=== PATIENT | female | born 1950 | race Caucasian/White ===

== ENCOUNTER 2016-04-24 07:00 | Inpatient (IN) | payer OTHER, MEDICARE ==
[~2016-04-24] VITALS: Ht 160 cm; Wt 70.3 kg
[2016-04-25] MEDS ORDERED: NEXIUM40 M1 PO (10:09)
[2016-05-07] MEDS ORDERED: MAGNESIUM500 M2 PO (07:25)
[2016-05-07] MEDS ORDERED: VICODIN 5-3001 EACH PO (07:25)
[2016-05-07] MEDS ORDERED: TUMS200 MG PO (07:26)
--- NOTE | 2016-05-07 08:46 | Operative Report ---
Operative/Inv Procedure Report Surgery Date: 05/07/16 Name of Procedure: L2-5 laminectomy, medial L2-3, L3 4, L4 5 facetectomies Pre-Operative Diagnosis: L2-5 stenosis with claudication Post-Operative Diagnosis: same Estimated Blood Loss: 500cc Surgeon/Medical Office Representative: ESTUARDO CROCKETT,GURU Chu Anesthesia: general endotracheal tube IV Fluids: replaced with crystalloid 2.4L Implants: None Urine Output: 1500cc via celaya Drains: Medium HORACIO Specimens: None Complications: None Condition: stable Operative Indication: Pt 65yo women with intractable LE claudication nonresponsive to nonoperative treatment. Imaging identifies multilevel lumbar DDD with multilevel stenosis L2 -5 of moderately severe degree and varying degrees of mild spondylolisthesis without dynamic instability. Pt now presents for operative decompression. Operative/Procedure Note Note: Pt taken to OR and after pt identification and surgical time out, pt underwent smooth induction of GET, given 2g iv kefzol in preop prophylaxis, had celaya catheter steriley inseted, and then carefully turned to prone position on Emil table ensuring all pressure pts well padded. The low back sterily prepped and draped with povoiodine solution and midline incision marked L2-5 and infiltrated with local. Lateral portable lumbar xray localized the spinal levels and skin incision made with 10 blade knife. Dissection carried down through subcutaneous tissue with the Bovie. The underlying lumbar dorsal fascia was identified and incised. A subperiosteal dissection lumbar paravertebral muscles was performed bilaterally exposing spinous processes lamina and facet joints from L2 to L5. Facet joint capsules were intentionally left in place. A Lloyd 4 elevator was placed under the inferomedial aspect of the presumed L4 lamina and intraoperative x-ray was obtained and confirmed the correct levels. We exposed the pars interarticularis of L2-L3 and L4 bilaterally. With correct levels verified, we then proceeded to perform a laminectomy of L2, L3, L4, and the rostral half of L5 using a combination of the bone scalpel and Kerrison rongeurs. Medial facetectomies bilaterally at L2-3, L3 4, L4 5 were performed using the bone scalpel and Kerrisons and a decompression was taken laterally to the level of the medial pedicle at all 3 levels. Tightest stenosis was noted at L4 5 moderately severe stenosis at L3 4 and moderate L2-3. Flava was stripped and the dural sac was widely decompressed. Using a [place] elevator we were able to easily palpate out the neural foramen at all 3 levels bilaterally and thickened ligamentum flavum was removed from the lateral gutters with the Kerrison until an excellent decompression of the proximal roots and thecal sac was accomplished. The wound was copiously irrigated with antibiotic sterile saline irrigation. Small amount of venous epidural bleeding was easily controlled using Surgi-Trino and Hector of [place] patties. We monitored the wound. There was no evidence of a CSF leak. I with the decompression looking excellent, we then began wound closure. A medium Hemovac drain was placed into the wound and secured to the skin with a 2-0 nylon suture. 1 g of IV vancomycin powder was placed over the cut muscle and soft tissue surfaces. A 10 mL of long-acting local was injected into the paravertebral muscle for postoperative analgesia. Deep muscle was reapproximated with interrupted 0 Vicryl suture. Lumbodorsal fascia was reapproximated with interrupted 0 Vicryl suture. Subcutaneous tissue was closed in layers with interrupted 2-0 Vicryl suture and the skin was closed with edyta. The wound was cleaned and dried. Bacitracin and a sterile occlusive dressings were placed. She was returned to the supine position, awakened, extubated, and taken to PACU in stable condition. She was noted to moving all 4 extremities at the completion of the case. All sponge, needle, and instrument counts are correct the completion of procedure 3. Findings: Tight stenosis L4 5 greater than L3 4 greater than L2-3 secondary to hypertrophic facet and ligamentous changes Discharge Disposition: PACU
[2016-05-07 14:45] VITALS: BP 124/72
--- NOTE | 2016-05-07 14:51 | PN- Neurosurgical ---
Subjective Subjective: The patient was seen this afternoon. She was still sleepy but relatively comfortable complaining of incisional pain. She had no other complaints the current time and denied any numbness, weakness, or tingling in her extremities. Objective Vital Signs and I&Os Vital Signs Date Time Temp Pulse Resp B/P Pulse O2 O2 Flow FiO2 Ox Delivery Rate 05/07 1445 97.4 64 18 124/72 95 Nasal 2.0L Cannula I's and O's: 2400 ML's in of lactated Ringer's/250 ML's out of urine via Haskins catheter/100 ML's out of sanguinous drainage via HORACIO/EBL 500 Physical Exam: Gen.: Sleepy but easily arousable and in no obvious distress Skin: Warm and dry Cardiac: S1 and S2 regular Pulmonary: Bilateral breath sounds were equal and decreased at bases Extremities: The patient moves all 4 extremities with equal strength. Gross motor and sensory are intact. Bilateral lower extremities are warm without calf tenderness or significant edema. Back: Surgical dressing is slightly blood tinged at the inferior aspect and there is a HORACIO 1 holding suction with sanguinous drainage in the bulb. Assessment/Plan Assessment/Plan Assessment: 65-year-old female status post lumbar laminectomy L2 through L5. Postoperatively the patient is progressing as expected and her pain is under adequate control. Plan: Out of bed with brace on Continue current pain regiment IV antibiotics until the HORACIO is removed IV hydration and Haskins catheter with strict I's and O's until the morning Resume all medications GI and DVT prophylaxis, will start heparin tomorrow morning if HORACIO output is reasonable Incentive spirometry Core Measures/Miscellaneous Haskins Catheter Date In: 05/07/16 Still Needed? Yes Venous Thromboembolism VTE Risk Factors: Age > 40, Surgery VTE Contraindications: Severe Spine Trauma x4 wk No Pharm VTE Prophylaxis D/T: Surgical Contraindication VTE Diagnosis: No Beta Ester Is Beta Ester a Home Med? No Antibiotics Is Patient on Antibiotics? Yes If Yes: prophylaxis
--- NOTE | 2016-05-07 15:28 | RADIOLOGY REPORT ---
EXAMINATION: XR LUMBAR SPINE CLINICAL INFORMATION: L2-L5 laminectomy in the OR. Verbal order per Dr. Lange. Read back done COMPARISON: Lumbar spine MRI 09/19/2015. Thoracic spine MRI 04/23/2016. TECHNIQUE: 3 lateral intraoperative radiographs of the lumbar spine were obtained FINDINGS: Image #1 at 9:13 AM: A metallic probe is seen with tip projecting immediately posterior to the posterior spinous process of L5. There is multilevel facet arthropathy greatest in the lower lumbar spine. Vacuum disc phenomenon is seen at L1-L2 through L3-L4. There is endplate sclerosis and anterior osteophytosis T11-T12 through L2-L3. Image #2 at 9:51 AM: Metallic surgical instruments are seen within the soft tissues posterior to L3 and L4. There is a metallic probe with tip at the level of the inferior endplate of L3. Image at 10:09 AM: Metallic wires are seen posteriorly from L3 to L5. There is a single metallic probe with tip overlying the L4-L5 facet joint, at the level of the superior endplate of L5. IMPRESSION: Intraoperative localization for laminectomy, as described above.
[2016-05-07 18:19] VITALS: BP 130/72
[2016-05-07 22:10] VITALS: BP 128/70
[2016-05-08 00:16] VITALS: BP 118/60
[2016-05-08 03:56] VITALS: BP 122/80
--- NOTE | 2016-05-08 07:45 | PN- Neurosurgical ---
Subjective Subjective: Pt with incisional LBP, otherwise no complaints Objective Vital Signs and I&Os Vital Signs Date Time Temp Pulse Resp B/P Pulse O2 O2 Flow FiO2 Ox Delivery Rate 05/08 0356 98.0 18 18 122/80 98 05/08 0016 98.8 52 20 118/60 99 05/08 0000 96 Nasal 2.0L Cannula 05/07 2210 98.6 58 19 128/70 99 Nasal 2.0L Cannula 05/07 2200 96 Nasal 2.0L Cannula 05/07 1819 97.4 64 19 130/72 99 Nasal 2.0L Cannula 05/07 1600 97 Nasal 2.0L Cannula 05/07 1600 97 Nasal 2.0L Cannula 05/07 1445 97.4 64 18 124/72 95 Nasal 2.0L Cannula Intake & Output 05/08 0800 05/08 0000 05/07 1600 05/07 0800 05/07 0000 05/06 1600 Intake Total 720 Output Total 200 40 Balance 520 -40 Intake, IV 240 Intake, Oral 480 Output, 40 Drainage Output, Urine 200 Patient 70.307 kg Weight Physical Exam: AF, VSS alert and oriented normal neuro exam incision with min serosanguinous drainage HORACIO with 85cc overnight Current Medications: Current Medications Sig/Alethea Start time Last Medication Dose Route Stop Time Status Admin Acetaminophen 650 MG Q4P PRN 05/07 1615 AC PO Acetaminophen 1,000 MG Q6P PRN 05/07 1430 AC N/A 1 UNIT IV Bisacodyl 10 MG DAILY NEEDED PRN 05/07 1430 AC TN Calcium Carbonate 500 MG BID PRN 05/07 1300 AC PO Calcium Carbonate 400 MG BID PRN 05/07 1230 DC PO Cefazolin Sodium 2 GM IQ8 05/07 1600 AC 05/07 N/A 1 UNIT IV 05/08 1559 2323 Cefazolin Sodium 2,000 MG ONCE 05/07 0000 DC IV 05/07 2359 Dextrose/Sodium 1,000 ML .[id number] 05/07 1430 DC 05/07 Chloride IV 1435 Diazepam 5 MG Q8P PRN 05/07 1430 AC PO Docusate Sodium 100 MG DAILY 05/08 1000 DC PO Docusate Sodium 100 MG TID 05/07 1600 AC 05/07 PO 2225 Fentanyl Citrate 100 MCG .STK-MED ONE 05/07 1103 DC IM 05/07 1104 Fentanyl Citrate 250 MCG .STK-MED ONE 05/07 0804 DC IM 05/07 0805 Haloperidol 5 MG .STK-MED ONE 05/07 1238 DC IM 05/07 1239 Heparin Sodium 5,000 UNIT Q8 05/08 0600 AC 05/08 (Porcine) SC 0630 Hydromorphone HCl 1 MG Q4P PRN 05/07 1615 AC IV Hydromorphone HCl 0.5 MG Q3P PRN 05/07 1430 AC 05/07 IV 2112 Hydromorphone HCl 1 MG Q3P PRN 05/07 1430 AC 05/08 IV 0259 Ketorolac 15 MG Q6P PRN 05/07 1430 AC Tromethamine IV 05/10 1424 Ketorolac 30 MG .STK-MED ONE 05/07 1237 DC Tromethamine IM 05/07 1238 Midazolam HCl 2 MG .STK-MED ONE 05/07 0804 DC IM 05/07 0805 Omeprazole 80 MG DAILY AC 05/08 0700 AC PO Omeprazole 40 MG AT BEDTIME 05/07 2200 AC PO Ondansetron HCl 4 MG Q6P PRN 05/07 1430 AC IV Oxycodone/ 2 TAB Q4P PRN 05/07 1615 AC 05/08 Acetaminophen PO 0628 Ramelteon 8 MG AT BEDTIME 05/07 2200 AC PO Senna 374 MG AT BEDTIME NEED.. 05/07 1615 AC 05/07 PO 2243 Sodium Chloride 1,000 ML .[id number] 05/07 1615 AC 05/08 IV 05/08 1714 0628 Zolpidem Tartrate 2.5 MG AT BEDTIME 05/07 2200 AC PO Assessment/Plan Assessment/Plan Pt POD1 s/p lumbar lami L2-5 and neurologically stable Plan: -OOB with brace -PT -ADAT -DVT prophylaxis -cont HORACIO until less than 50cc per shift, abx until drain out -encourage IS use - pt with low lung volumes Core Measures/Miscellaneous Haskins Catheter Date In: 05/07/16 Venous Thromboembolism VTE Risk Factors: Age > 40, Surgery VTE Contraindications: Severe Spine Trauma x4 wk No Pharm VTE Prophylaxis D/T: Surgical Contraindication VTE Diagnosis: No Beta Ester Is Beta Ester a Home Med? No Antibiotics Is Patient on Antibiotics? Yes If Yes: prophylaxis Attending MD Review Statement Attending Statement Attending MD Statement: examined this patient, discuss w/resident/PA/FAMILY RESOURCE MANAGEMENT SPECIALIST, discussed w/nursing
--- NOTE | 2016-05-08 08:44 | Patient Discharge Instructions ---
Discharge Instructions General Discharge Information You were seen/treated for: L2-5 stenosis with claudication You had these procedures: Surgery Date: 05/07/16 Name of Procedure: L2-5 laminectomy, medial L2-3, L3 4, L4 5 facetectomies Watch for these problems: fever>101.3, increased pain, redness/swelling/drainage Other wound care: see pre-printed instructions Diet Continue normal diet: Yes Recommended Diet: Regular Activity Full Activity/No Limits: No Activity Self Limited: Yes Pounds, do NOT lift more than: 5 Activity Limited to: Weight bear as tolerated Other activity limits: oob with brace Acute Coronary Syndrome Inclusion Criteria At DC or during hospital stay patient has or had the following: ACS DIAGNOSIS No Discharge Core Measures Meds if any: Prescribed or Continued at Discharge Meds if any: NOT Prescribed or Continued at Discharge Congestive Heart Failure Inclusion Criteria At DC or during hospital stay patient has or had the following: CHF DIAGNOSIS No Discharge Core Measures Meds if any: Prescribed or Continued at Discharge Meds if any: NOT Prescribed or Continued at Discharge Cerebrovascular accident Inclusion Criteria At DC or during hospital stay patient has or had the following: CVA/TIA Diagnosis No Discharge Core Measures Meds if any: Prescribed or Continued at Discharge Meds if any: NOT Prescribed or Continued at Discharge Venous thromboembolism Inclusion Criteria VTE Diagnosis No VTE Type NONE VTE Confirmed by (Test) NONE Discharge Core Measures - Per Current guidelines, there needs to be overlap - treatment for the first 5 days of Warfarin therapy. - If discharged on Warfarin prior to 5 days of - overlap therapy, the patient will need to be - assessed for post discharge needs including - *Post discharge parental anticoagulation - *Warfarin and/or parental anticoagulation education - *Follow up date to check INR post discharge At least 5 days overlap therapy as Inpatient No Meds if any: Prescribed or Continued at Discharge Note: Overlap Therapy is Warfarin and Anticoagulant Meds if any: NOT Prescribed or Continued at Discharge
[2016-05-08] MEDS ORDERED: DOCUSATE SODIU100 M3 PO (08:46)
[2016-05-08] MEDS ORDERED: PERCOCET 7.5-31 EACH PO (08:48)
[2016-05-08] MEDS ORDERED: VALIUM10 M1 PO (08:48)
--- NOTE | 2016-05-08 08:51 | Surg Short-stay <48hrs Dis Sum ---
Visit Information Visit Dates Admission Date: 05/07/16 Discharge Date: 04/2416 Surgical Short Stay DC Summary Admission Diagnosis: L2-5 stenosis with claudication Final Diagnosis: s/p L2-5 laminectomy, medial L2-3, L3 4, L4 5 facetectomies Procedure(s): Surgery Date: 05/07/16 Name of Procedure: L2-5 laminectomy, medial L2-3, L3 4, L4 5 facetectomies Summary/Significant Findings: Operative Indication: Pt 65yo women with intractable LE claudication nonresponsive to nonoperative treatment. Imaging identifies multilevel lumbar DDD with multilevel stenosis L2 -5 of moderately severe degree and varying degrees of mild spondylolisthesis without dynamic instability. Pt now presents for operative decompression. Uneventful L2-L5 laminectomy by on 05/07/16. Pain medication transitioned from iv to oral medications during post-operative course. PT eval done on post-op day#1. HORACIO drain left in place, with antibiotics continued, until the drainage was deemed appropriate for removal by . Plan for discharge to home on post-op day#2, and HORACIO drain removed prior to discharge. Prescriptions for valium and percocet filled at the retail pharmacy at [place] for order picker/assembler at the patient's convenience. Condition at Discharge: stable Discharge Disposition: home or self care Discharge instructions provided to patient/family: Yes Post discharge follow-up plan: pre-printed instructions given to patient prescriptions filled for valium and percocet call 's office to schedule follow up visit within 2 weeks after discharge
[2016-05-08 14:42] VITALS: BP 124/80
[2016-05-08 21:54] VITALS: BP 120/70
[2016-05-09 02:19] VITALS: BP 138/76
[2016-05-09 07:11] VITALS: BP 158/83
--- NOTE | 2016-05-09 08:57 | PN- Neurosurgical ---
Subjective Subjective: OOB in chair Feels comfortable at this time but states that she is still requiring increased meds with ambulation for pain. Tolerating diet - no bm yet, would like another laxative OOB with brace, states that she cannot stand upright yet or ambulate upright without back pain although her leg pain is resolved from pre op Objective Vital Signs and I&Os Vital Signs Date Time Temp Pulse Resp B/P Pulse O2 O2 Flow FiO2 Ox Delivery Rate 05/09 0711 99.6 83 20 158/83 92 Room Air 05/09 0219 99.4 75 18 138/76 94 Room Air 05/08 2200 94 Room Air Room Air 05/08 2154 99.2 86 19 120/70 93 05/08 1442 97.6 62 18 124/80 98 Room Air 05/08 1400 96 Room Air Intake & Output 05/09 1600 05/09 0800 05/09 0000 05/08 1600 05/08 0800 05/08 0000 Intake Total 308 766 2884 720 Output Total 550 304 065 0334 200 Balance -430 -350 -125 -250 520 Intake, IV 120 700 240 Intake, Oral 525 480 480 Output, 50 130 Drainage Output, Urine 550 209 433 0667 200 Patient 155 lb Weight Physical Exam: T max 99.6 Drain output: 50cc overnight serosanguinous, 50 cc prior shift General: alert and oriented times three, OOB in chair with brace Chest: clear anteriorly bilaterally, RRR Abd: soft, good bs Ext: warm, no edema, positive sensate, no calf tenderness, 5/5 DENISE all 4 ext Wound: dressed, dry - dressing changed last night Assessment/Plan Assessment/Plan 65 yo female s/p lum anaya L2-5 keep drain for now - will discuss with Dr Lange Continue abx while drain is in place ambulate with brace Pt is interested in possible rehab - will discuss with Dr Lange and PT Core Measures/Miscellaneous Venous Thromboembolism VTE Risk Factors: Age > 40, Surgery VTE Contraindications: Severe Spine Trauma x4 wk No Pharm VTE Prophylaxis D/T: Surgical Contraindication VTE Diagnosis: No Beta Ester Is Beta Ester a Home Med? No Antibiotics Is Patient on Antibiotics? Yes If Yes: prophylaxis
--- NOTE | 2016-05-09 10:27 | PN- Neurosurgical ---
Subjective Subjective: Patient with incisional low back pain well controlled with oral Percocet. Otherwise no complaints. Objective Vital Signs and I&Os Vital Signs Date Time Temp Pulse Resp B/P Pulse O2 O2 Flow FiO2 Ox Delivery Rate 05/09 0711 99.6 83 20 158/83 92 Room Air 05/09 0219 99.4 75 18 138/76 94 Room Air 05/08 2200 94 Room Air Room Air 05/08 2154 99.2 86 19 120/70 93 05/08 1442 97.6 62 18 124/80 98 Room Air 05/08 1400 96 Room Air Intake & Output 05/09 1600 05/09 0800 05/09 0000 05/08 1600 05/08 0800 05/08 0000 Intake Total 120 238 558 8108 720 Output Total 600 109 666 4832 200 Balance -480 -230 -125 -250 520 Intake, IV 120 700 240 Intake, Oral 120 525 480 480 Output, 50 50 130 Drainage Output, Urine 550 871 728 9547 200 Patient 70.307 kg Weight Physical Exam: Afebrile, vital signs stable Awake alert and oriented Normal motor exam of the lower extremities bilaterally. Sensory intact. Incision clean dry and flat. HORACIO drain in place. Voiding on own. Tolerating minimal po Ambulating with walker and PT Current Medications: Current Medications Sig/Alethea Start time Last Medication Dose Route Stop Time Status Admin Acetaminophen 650 MG Q4P PRN 05/07 1615 AC PO Acetaminophen 1,000 MG Q6P PRN 05/07 1430 AC N/A 1 UNIT IV Bisacodyl 10 MG DAILY NEEDED PRN 05/07 1430 AC DE Calcium Carbonate 500 MG BID PRN 05/07 1300 AC PO Cefazolin Sodium 2 GM IQ8 05/07 1600 AC 05/09 N/A 1 UNIT IV 05/09 1558 0829 Diazepam 5 MG Q8P PRN 05/07 1430 AC PO Docusate Sodium 100 MG TID 05/07 1600 AC 05/09 PO 0945 Heparin Sodium 5,000 UNIT Q8 05/08 0600 AC 05/09 (Porcine) SC 0722 Hydromorphone HCl 0.5 MG Q4-6 PRN PRN 05/08 0800 AC IV Hydromorphone HCl 1 MG Q4P PRN 05/07 1615 AC 05/09 IV 0418 Ketorolac 15 MG Q6P PRN 05/07 1430 AC 05/08 Tromethamine IV 05/10 1424 0947 Omeprazole 80 MG DAILY AC 05/08 0700 AC PO Omeprazole 40 MG AT BEDTIME 05/07 2200 AC PO Ondansetron HCl 4 MG Q6P PRN 05/07 1430 AC IV Oxycodone/ 2 TAB Q4P PRN 05/07 1615 AC 05/09 Acetaminophen PO 0830 Patient Medication 1 ED .STK-MED ONE 05/08 1404 DC Teaching ED 05/08 1405 Polyethylene Glycol 17 GM DAILY 05/09 1000 AC PO Ramelteon 8 MG AT BEDTIME 05/07 2200 AC PO Senna 374 MG DAILY 05/09 1000 AC PO Senna 374 MG AT BEDTIME NEED.. 05/07 1615 DC 05/07 PO 2243 Zolpidem Tartrate 2.5 MG AT BEDTIME 05/07 2200 AC PO Assessment/Plan Assessment/Plan Patient postop day 2 status post multilevel laminectomy L2-5 with stable neurologic exam. Making progress with PT and pain control. PLAN: -Out of bed -DC drain, antibiotic -Discharge planning, home with VNA -Percocet when necessary -Likely home tomorrow Core Measures/Miscellaneous Venous Thromboembolism VTE Risk Factors: Age > 40, Surgery VTE Contraindications: Severe Spine Trauma x4 wk No Pharm VTE Prophylaxis D/T: Surgical Contraindication VTE Diagnosis: No Beta Ester Is Beta Ester a Home Med? No Antibiotics Is Patient on Antibiotics? Yes If Yes: prophylaxis Attending MD Review Statement Attending Statement Attending MD Statement: examined this patient, discuss w/resident/PA/BRAILLE TEACHER, discussed w/nursing
[2016-05-09 10:56] VITALS: BP 122/78
[2016-05-09 22:25] VITALS: BP 120/78
[2016-05-10 06:17] VITALS: BP 118/72
--- NOTE | 2016-05-10 07:53 | PN- Neurosurgical ---
Subjective Subjective: Pt better this am, pain well controlled. Reports mild pain ant thights bilat. Objective Vital Signs and I&Os Vital Signs Date Time Temp Pulse Resp B/P Pulse O2 O2 Flow FiO2 Ox Delivery Rate 05/10 0617 99.7 71 20 118/72 97 Room Air 05/09 2225 98.1 100 20 120/78 95 Room Air 05/09 2200 98 Room Air 05/09 1948 Room Air 05/09 1600 Room Air 05/09 1200 Room Air 05/09 1056 98.7 70 18 122/78 98 Intake & Output 05/10 0800 05/10 0000 05/09 1600 05/09 0800 05/09 0000 05/08 1600 Intake Total 120 400 550 120 120 525 Output Total 400 600 870 600 350 650 Balance -280 -200 -320 -480 -230 -125 Intake, IV 150 120 Intake, Oral 120 400 400 120 525 Number 0 Bowel Movements Output, 20 50 50 Drainage Output, Urine 400 600 850 550 300 650 Physical Exam: AF, VSS awake and alert ambulatory with can incision c,d,i, neuro intact bilat LE oneil po, voiding on own Current Medications: Current Medications Sig/Alethea Start time Last Medication Dose Route Stop Time Status Admin Acetaminophen 650 MG Q4P PRN 05/07 1615 AC PO Acetaminophen 1,000 MG Q6P PRN 05/07 1430 AC N/A 1 UNIT IV Bisacodyl 10 MG DAILY NEEDED PRN 05/07 1430 AC UT Calcium Carbonate 500 MG BID PRN 05/07 1300 AC PO Cefazolin Sodium 2 GM IQ8 05/07 1600 DC 05/09 N/A 1 UNIT IV 05/09 1558 0829 Diazepam 5 MG Q8P PRN 05/07 1430 AC 05/09 PO 1843 Docusate Sodium 100 MG TID 05/07 1600 AC 05/10 PO 0632 Heparin Sodium 5,000 UNIT Q8 05/08 0600 AC 05/10 (Porcine) SC 0601 Hydromorphone HCl 0.5 MG Q4-6 PRN PRN 05/08 0800 AC IV Hydromorphone HCl 1 MG Q4P PRN 05/07 1615 AC 05/09 IV 0418 Ketorolac 15 MG Q6P PRN 05/07 1430 AC 05/08 Tromethamine IV 05/10 1424 0947 Omeprazole 80 MG DAILY AC 05/08 0700 AC PO Omeprazole 40 MG AT BEDTIME 05/07 2200 AC PO Ondansetron HCl 4 MG Q6P PRN 05/07 1430 AC IV Oxycodone/ 2 TAB Q4P PRN 05/07 1615 AC 05/10 Acetaminophen PO 0630 Polyethylene Glycol 17 GM DAILY 05/09 1000 AC 05/09 PO 1219 Ramelteon 8 MG AT BEDTIME 05/07 2200 AC 05/09 PO 2122 Senna 374 MG DAILY 05/09 1000 AC 05/09 PO 1218 Senna 374 MG AT BEDTIME NEED.. 05/07 1615 DC 05/07 PO 2243 Zolpidem Tartrate 2.5 MG AT BEDTIME 05/07 2200 AC 05/09 PO 2126 Assessment/Plan Assessment/Plan Pt POD 3 s/p L2-5 lami and doing well. Plan: -home today with VNA -fu 2 weeks for edyta -no driving, no lift more than 5bs, no submerging incision, cover for showers Core Measures/Miscellaneous Venous Thromboembolism VTE Risk Factors: Age > 40, Surgery VTE Contraindications: Severe Spine Trauma x4 wk No Pharm VTE Prophylaxis D/T: Surgical Contraindication VTE Diagnosis: No Beta Ester Is Beta Ester a Home Med? No Antibiotics Is Patient on Antibiotics? Yes If Yes: prophylaxis Attending MD Review Statement Attending Statement Attending MD Statement: examined this patient, discuss w/resident/PA/RELAYS DRAFTSPERSON, discussed w/nursing
== END 2016-05-10 10:32 | disposition home health service (06) | DRG 517 ==
LOC: ENRESERVDT → ENRESERVTM → SDA 07:00 → 2NB 05-07 03:22 → SDA 05-07 07:00 → 2NB 05-07 14:23
PROVIDERS: ADMIT Neurological Surgery
PROC: 01NB0ZZ Release Lumbar Nerve, Open Approach (ICD-10-PCS; principal; 2016-05-07)
DX: M48.06 Spinal stenosis, lumbar region (principal); J43.9 Emphysema, unspecified; M51.36 Other intervertebral disc degeneration, lumbar region; M43.16 Spondylolisthesis, lumbar region; K22.70 Barrett's esophagus without dysplasia; Z87.891 Personal history of nicotine dependence
CPT/HCPCS: 2NBSP; 36415; 72020; 87086; 97116-GO; 97161-GP; 97530-GO; C9290; J0131; J0690; J1170; J1630; J1644; J1885; J2405; J3370; J7042